=== PATIENT | female | born 1970 | race American Indian/Alaskan Native ===

== ENCOUNTER 2017-09-14 11:37 | Day surgery (SDC) | payer BC ==
[~2017-09-14 11:37] MED LIST: ANCEF/STERILE WATER 2 GM/20 ML IV NR
[2017-09-14] MEDS ORDERED: NACL 0.9% 1000 ML 1,000 ML ONE (13:17)
[2017-09-14] MEDS ORDERED: SUBLIMAZE IV PRN (13:23)
--- NOTE | 2017-09-14 13:26 | Anesthesia Day of Surgery ---
Anesthesia Day of Surgery - Day of Surgery Patient Examined: Yes Patient H&P Reviewed: Yes Patient is NPO: Yes
[2017-09-14] MEDS ORDERED: SUBLIMAZE ONE (13:28)
[2017-09-14] MEDS ORDERED: DIPRIVAN 10 MG/ML IV ONE (13:28)
[2017-09-14] MEDS ORDERED: XYLOCAINE MPF 2% ONE (13:28)
--- NOTE | 2017-09-14 13:28 | Anesthesia Consultation ---
Anesthesia Consult and Med Hx Date of service: 09/14/17 - Airway Anesthetic Teeth Evaluation: Good ROM Head & Neck: Adequate Mental/Hyoid Distance: Adequate Mallampati Class: Class II Intubation Access Assessment: Probably Good - Pulmonary Exam CTA: Yes - Cardiac Exam Cardiac Exam: RRR - Pre-Operative Health Status ASA Pre-Surgery Classification: ASA2 Proposed Anesthetic Plan: General - Pulmonary Hx Smoking: No Hx Asthma: Yes (RARE INHALER USE) SOB: No Hx Sleep Apnea: No ([facility] PRE SCREEN LOW RISK) - Cardiovascular System Hx Hypertension: Yes (X 2 YRS) Hx Heart Attack/AMI: No Hx Angina: No - Central Nervous System Hx Seizures: No CVA: No - Gastrointestinal Hx Gastroesophageal Reflux Disease: No - Endocrine Hx Renal Disease: Yes (kidney stones) Hx Insulin Dependent Diabetes: No Hx Non-Insulin Dependent Diabetes: No Hx Thyroid Disease: No - Other Systems Hx Alcohol Use: Yes (occasional) Hx Substance Use: No Hx Cancer: No - Additional Comments Anesthesia Medical History Comments: PMH HTN (did not take antihypertensive today), HLD, mild intermittent asthma, kidney stones, PONV.
[2017-09-14] MEDS ORDERED: NACL 0.9% 1000 ML 1,000 ML IV SCH ×3 (14:00)
[2017-09-14] MEDS ORDERED: VERSED IV NR ×2 (14:00)
[2017-09-14] MEDS ORDERED: TRANSDERM-SCOP TD NR (14:00)
[2017-09-14] MEDS ORDERED: ZOFRAN ONE (14:17)
[2017-09-14] MEDS ORDERED: DECADRON ONE (14:17)
[2017-09-14] MEDS ORDERED: OMNIPAQUE (300 MG) IR ONE (14:28)
[2017-09-14] MEDS ORDERED: WATER FOR IRRIG STERILE IR ONE ×2 (14:28)
--- NOTE | 2017-09-14 14:53 | Short Stay Summary ---
Short Stay Documentation Date of service: 09/14/17 - History H&P: obtained from office - Allergies and Medications Current Medications: Allergies Sulfa (Sulfonamide Antibiotics) Allergy (Verified 06/06/13 12:58) Hives Home Medications Medication Instructions Recorded Confirmed Last Taken Type ALBUTEROL Inhaler [Proair] 2 puff IH QID PRN 09/13/17 09/13/17 Unknown History Cholecalciferol (Vitamin D3) 2,000 unit PO QDAY 09/13/17 09/14/17 09/13/17 09: 00 History [Vitamin D3 2,000 unit] HYDROcodone/APAP 5-325 [[place] 1 each PO Q6HR PRN 09/13/17 09/13/17 Unknown History 5/325] Losartan [Cozaar] 25 mg PO QDAY 09/13/17 09/14/17 09/12/17 09:00 History Rosuvastatin Calcium [Crestor] 10 mg PO DAILY 09/13/17 09/14/17 09/13/17 20:00 History Active Medications Cefazolin Sodium (Ancef/Sterile Water 2 Gm/20 Ml) 2 gm IV PREOP NR Stop: 09/14/17 23:59 Fentanyl (Sublimaze) 50 mcg IV Q10MIN PRN PRN Reason: Pain , Severe (7-10) Stop: 09/14/17 23:59 Sodium Chloride (Nacl 0.9% 1000 Ml) 1,000 mls @ 75 mls/hr IV DIRECT YOLIS Last Admin: 09/14/17 13:25 Dose: 75 mls/hr Sodium Chloride (Nacl 0.9% 1000 Ml) 1,000 mls @ 100 mls/hr IV DIRECT YOLIS Midazolam HCl (Versed) 2 mg IV PREOP NR Stop: 09/14/17 23:59 Last Admin: 09/14/17 13:26 Dose: 2 mg Scopolamine (Transderm-Scop) 1 each TD PREOP NR Stop: 09/17/17 23:59 Last Admin: 09/14/17 13:26 Dose: 1 each - Brief post op/procedure progress note Date of procedure: 09/14/17 Pre-op diagnosis: left ureteral stone -8mm Post-op diagnosis: other (rt renal stone) Procedure: cysto, rpg, left ureteroscopy, stone extraction, stent with external string Anesthesia: GETA Surgeon: ARNOLD BELL Estimated blood loss: none Condition: stable - Hospital course Hospital course: edgardo velazco,post op info on chart give stone to pt - Disposition Condition at discharge: Stable Disposition: DC-01 TO HOME OR SELFCARE Short Stay Discharge Plan Follow up with: LENCHO DURHAM MD [Primary Care Provider] - 7 Days
--- NOTE | 2017-09-14 16:25 | Operative Report ---
PREOPERATIVE DIAGNOSIS: Left distal ureteral stone 8 mm, right renal stone 10 mm. POSTOPERATIVE DIAGNOSIS: Left distal ureteral stone 8 mm, right renal stone 10 mm. PROCEDURE: Cystoscopy, bilateral retrograde pyelograms, left ureteroscopy, stone extraction, double-J stent (6-[place] 24 cm) with an external string. SURGEON: Ruel Artis MD ANESTHESIA: General. ESTIMATED BLOOD LOSS: Minimal. FLUIDS: Crystalloid. COMPLICATIONS: No complications. INDICATIONS: This patient is a 47-year-old female seen in the office. She has a long history of stones, has had lithotripsy and stents in the past. She was seen recently for left flank pain. CT of the abdomen and pelvis revealed left distal 7-8 mm stone and right renal stone. She had an episode of significant pain and wants to proceed with stone extraction on the left. She will have elective lithotripsy of the right stone at a later date. DESCRIPTION OF PROCEDURE: The patient was taken to the operative suite, placed in a supine position. After adequate general anesthesia, was placed in the dorsal lithotomy position, prepped and draped in a sterile fashion. Pancystourethroscopy was performed with 22-S[place] Storz cystoscope, no acute bladder pathology. Stone could see the stone emanating from the ureter. Right retrograde pyelogram was obtained with an 8-[place] Watson catheter and 8 mL of contrast. No filling defects or obstruction in the ureter; however, the stone could be appreciated in the right kidney. Manipulation of the stone in the distal ureter, was able to break pieces off and extract the stone with the alligator grasper. Concern of fragments still in the ureter prompted ureteroscopy. Two 0.035 Glidewire were placed. Pyelogram was also obtained, which showed some dilation of the ureter diffusely. Rigid ureteroscopy, few fragments were seen in the ureter that could be washed out, did not have to remove them. Ureteroscopy up to the left renal pelvis was performed. No other stones could be appreciated. Scope was removed. A 6-S[place] 24 cm double-J stent with an external string was left indwelling. Fluoroscopy confirmed adequate position. We will give the stone to the patient, she was extubated and taken to recovery room. She will go home on [facility] and [facility]. JOB# [id number] [facility]
[2017-09-14 16:34] VITALS: BP 124/71
--- NOTE | 2017-09-14 18:30 | Post Anesthesia Evaluation ---
- Post Anesthesia Evaluation Patient Participated: Yes Airway Patent: Yes Stable Respiratory Function: Yes Nausea/Vomiting: No Temp > 96.8F: Yes Pain Manageable: Yes Adequeate Hydration: Yes Anesthesia Complications: No Block Receding Appropriately: Not Applicable Patient on Ventilator: No
--- NOTE | 2017-09-15 07:52 | Fluoroscopy Report ---
FLUOROSCOPY RETROGRADE UROGRAPHY: HISTORY: Left ureteral stone, right renal stone. FINDINGS: Fluoroscopy was provided by radiology during retrograde urography by the urologist. 14 fluoroscopic images were captured. [employer] Service Supervisor film of the abdomen demonstrates an approximate 1 cm calcification overlying the inferior pole of the right kidney. An approximate 5 mm calcification overlies the distal left ureter. Subsequent images demonstrate balloon dilatation of the distal left ureter and placement of a left ureteral stent. A distal left ureteral stone was removed per the operative notes. IMPRESSION: Distal left ureteral stone removal. A left ureteral stent placement. Right renal stone not manipulated.
== END 2017-09-14 16:33 | disposition home or self-care (01) ==
LOC: OR 11:37
PROVIDERS: ATTEND Urology
DX: N20.2 Calculus of kidney with calculus of ureter (principal); E78.00 Pure hypercholesterolemia, unspecified; I10 Essential (primary) hypertension; J45.909 Unspecified asthma, uncomplicated; G47.30 Sleep apnea, unspecified; K21.9 Gastro-esophageal reflux disease without esophagitis; Z88.2 Allergy status to sulfonamides; Z79.899 Other long term (current) drug therapy; Z96.0 Presence of urogenital implants; Z72.89 Other problems related to lifestyle; Z98.890 Other specified postprocedural states; Z98.51 Tubal ligation status
CPT/HCPCS: 52353; 74420; 81025; A4217; C1758; C1769; C2617; J0690; J1100; J2250; J2405; J2704; J3010; J7030; Q9967